=== PATIENT | female | born 1985 | race Caucasian/White ===

== ENCOUNTER 2018-01-26 18:00 | Emergency (ER) | payer MEDICAID ==
[~2018-01-26] VITALS: Ht 165.1 cm; Wt 49.0 kg
[~2018-01-26 18:00] MED LIST: ALBU8HFA PO; CODE120S2 PO; DULO-31 PO; HYDR-2561 PO; HYDR-568 PO; HYDR50CA PO; LEVO500T2 PO; MOT200T PO; NITR100C6 PO; ONDA8TAB9 PO; POLY17PO10 PO; [UNRECOGNIZED DRUG - OTHER] PO
[2018-01-26] MEDS ORDERED: nitroglycerin (18:31)
[2018-01-26] MEDS ORDERED: CLON-527 PO (18:31)
[2018-01-26 18:56] LABS: URINE HCG NEGATIVE (NEG)
[2018-01-26 19:00] LABS: CLARITY,URINE Clear (Clear); COLOR,URINE Yellow (Yellow); GLUCOSE, URINE Negative (Neg); KETONES,URINE Negative (Neg); LEUKOCYTE ESTERASE ,URINE Negative (Neg); NITRITES, URINE Negative (Neg); OCCULT BLOOD,URINE Negative (Neg); PH,URINE 7.5 (4.8-8.0); PROTEIN,URINE Negative (Neg); UROBILINOGEN,URINE 0.2 E.U/dL (0.2-1.0)
[2018-01-26 19:02] LABS: UA COLLECTION TYPE CLN CATCH MIDSTREAM
[2018-01-26 19:47] LABS: BASOPHILS % (AUTO) 0.6 % (0-1); EOSINOPHILS # (AUTO) 0.1 X10'3 (0-0.9); EOSINOPHILS % (AUTO) 2.5 % (0-6); HEMATOCRIT 31.8 % (35.0-45.0); HEMOGLOBIN 10.7 g/dl (12.0-16.0); LYMPHOCYTES # (AUTO) 1.7 X10'3 (1.1-4.8); LYMPHOCYTES % (AUTO) 30.1 % (21-51); MEAN CORPUSCULAR HEMOGLOBIN 28.5 PG (27.0-31.0); MEAN CORPUSCULAR HGB CONC 33.6 % (33.0-36.5); MEAN CORPUSCULAR VOLUME 84.7 FL (78-98); MEAN PLATELET VOLUME 6.9 FL (7.4-10.4); MONOCYTES # (AUTO) 0.6 X10'3 (0-0.9); MONOCYTES % (AUTO) 11.1 % (2-12); NEUTROPHILS # (AUTO) 3.1 X10'3 (1.8-7.7); NEUTROPHILS % (AUTO) 55.7 % (42-75); PLATELET COUNT 249 X10'3 (140-440); RED BLOOD COUNT 3.75 X10'6 (4.20-5.60); RED CELL DISTRIBUTION WIDTH 14.3 % (11.5-14.5); WHITE BLOOD COUNT 5.6 X10'3 (4.5-11.0)
[2018-01-26] MEDS ORDERED: morphine 4 MG/ML inj SYRINge IM ONE (20:00)
[2018-01-26 20:01] LABS: ALANINE AMINOTRANSFERASE 17 U/L (12-78); ALBUMIN 3.3 G/DL (3.4-5.0); ALBUMIN/GLOBULIN RATIO 0.9 (1.1-1.5); ALKALINE PHOSPHATASE 48 IU/L (46-116); ANION GAP 7 (8-16); ASPARTATE AMINO TRANSFERASE 13 U/L (10-37); BILIRUBIN,TOTAL 0.2 MG/DL (0.1-1.0); BLOOD UREA NITROGEN 9 MG/DL (7-18); BUN/CREATININE RATIO 15.8 (6.6-38.0); CALCIUM 8.9 MG/DL (8.5-10.1); CHLORIDE 105 MMOL/L (99-107); CREATININE 0.57 MG/DL (0.40-0.90); GLUCOSE 93 MG/DL (70-104); POTASSIUM 3.7 MMOL/L (3.5-5.1); SODIUM 141 MMOL/L (135-145); TOTAL CARBON DIOXIDE 28.7 MMOL/L (24-32); TOTAL PROTEIN 6.8 G/DL (6.4-8.2); eGFR > 90 ML/MIN
[2018-01-26] MEDS ORDERED: morphine 4 MG/ML inj SYRINge IV ONE (20:05)
[2018-01-27 00:06] VITALS: BP 139/86
== END 2018-01-27 00:05 | disposition home or self-care (01) ==
LOC: ER 18:01
DX: I74.3 Embolism and thrombosis of arteries of the lower extremities (principal); G43.909 Migraine, unspecified, not intractable, without status migrainosus; F12.10 Cannabis abuse, uncomplicated; F15.10 Other stimulant abuse, uncomplicated; Z56.0 Unemployment, unspecified; Z87.442 Personal history of urinary calculi; Z90.49 Acquired absence of other specified parts of digestive tract; Z88.8 Allergy status to other drugs, medicaments and biological substances; Z79.899 Other long term (current) drug therapy
CPT/HCPCS: 36415; 76856; 80053; 81003; 81025; 83605; 85025; 93922; 93925; 93978; 96374; 99285; J2270

== ENCOUNTER 2018-01-31 12:39 | Inpatient (IN) | payer MEDICAID ==
[~2018-01-31] VITALS: Ht 157.5 cm; Wt 49.5 kg
[2018-01-31] VITALS (11 sets, daily range): BP systolic 103–120; BP diastolic 51–75
[~2018-01-31 12:39] MED LIST changes: +CLON-527 PO; -CODE120S2 PO; -DULO-31 PO; -HYDR-2561 PO; -HYDR-568 PO; -HYDR50CA PO; -LEVO500T2 PO; -MOT200T PO; -NITR100C6 PO; -ONDA8TAB9 PO; -POLY17PO10 PO; -[UNRECOGNIZED DRUG - OTHER] PO; +nitroglycerin
[2018-01-31 14:39] LABS: BASOPHILS % (AUTO) 0.8 % (0-1); EOSINOPHILS # (AUTO) 0.1 X10'3 (0-0.9); EOSINOPHILS % (AUTO) 1.4 % (0-6); HEMATOCRIT 32.2 % (35.0-45.0); LYMPHOCYTES # (AUTO) 1.4 X10'3 (1.1-4.8); LYMPHOCYTES % (AUTO) 25.8 % (21-51); MEAN CORPUSCULAR HEMOGLOBIN 28.5 PG (27.0-31.0); MEAN CORPUSCULAR VOLUME 83.8 FL (78-98); MEAN PLATELET VOLUME 6.8 FL (7.4-10.4); MONOCYTES # (AUTO) 0.4 X10'3 (0-0.9); MONOCYTES % (AUTO) 8.4 % (2-12); NEUTROPHILS # (AUTO) 3.4 X10'3 (1.8-7.7); NEUTROPHILS % (AUTO) 63.6 % (42-75); PLATELET COUNT 315 X10'3 (140-440); RED BLOOD COUNT 3.85 X10'6 (4.20-5.60); RED CELL DISTRIBUTION WIDTH 14.1 % (11.5-14.5); WHITE BLOOD COUNT 5.3 X10'3 (4.5-11.0)
[2018-01-31 14:49] LABS: PARTIAL THROMBOPLASTIN TIME 24 SECONDS (22-32); PROTHROMBIN TIME 10.5 SECONDS (9.0-12.0)
[2018-01-31 14:54] LABS: ALANINE AMINOTRANSFERASE 20 U/L (12-78); ALBUMIN 3.4 G/DL (3.4-5.0); ALKALINE PHOSPHATASE 57 IU/L (46-116); ANION GAP 8 (8-16); ASPARTATE AMINO TRANSFERASE 14 U/L (10-37); BILIRUBIN,TOTAL 0.3 MG/DL (0.1-1.0); BLOOD UREA NITROGEN 8 MG/DL (7-18); BUN/CREATININE RATIO 13.8 (6.6-38.0); CALCIUM 8.7 MG/DL (8.5-10.1); CHLORIDE 107 MMOL/L (99-107); CREATININE 0.58 MG/DL (0.40-0.90); GLUCOSE 83 MG/DL (70-104); POTASSIUM 3.6 MMOL/L (3.5-5.1); SODIUM 143 MMOL/L (135-145); TOTAL CARBON DIOXIDE 28.3 MMOL/L (24-32); TOTAL PROTEIN 6.9 G/DL (6.4-8.2); eGFR > 90 ML/MIN
[2018-01-31] MEDS ORDERED: FLUC100T PO (15:16)
[2018-01-31] MEDS ORDERED: RIVA20TA PO (15:16)
[2018-01-31] MEDS ORDERED: magnesium 4gm in 100ml NS 100 ML IV PRN (15:20)
[2018-01-31] MEDS ORDERED: magnesium 2GM in 50ml NS 50 ML IV PRN (15:20)
[2018-01-31] MEDS ORDERED: bisacodyl 10mg suppository rectal RC PRN (15:20)
[2018-01-31] MEDS ORDERED: potassium Cl 40MEQ/NS 500ml 500 ML IV PRN (15:20)
[2018-01-31] MEDS ORDERED: ipratropium/albuterol 3ml nebule NEB PRN (15:20)
[2018-01-31 15:22] LABS: CLARITY,URINE CLOUDY (Clear); COLOR,URINE YELLOW (Yellow); GLUCOSE, URINE NEGATIVE (Neg); KETONES,URINE NEGATIVE (Neg); LEUKOCYTE ESTERASE ,URINE NEGATIVE (Neg); NITRITES, URINE NEGATIVE (Neg); OCCULT BLOOD,URINE NEGATIVE (Neg); PROTEIN,URINE NEGATIVE (Neg); UA COLLECTION TYPE CLN CATCH MIDSTREAM; UROBILINOGEN,URINE 0.2 E.U/dL (0.2-1.0)
[2018-01-31 15:28] LABS: SQUAMOUS EPITHELIAL CELL,UR FEW /LPF (FEW)
[2018-01-31 15:29] LABS: AMORPHOUS PHOSPHATES 1+; BACTERIA,URINE FEW /HPF (Neg)
[2018-01-31 15:30] LABS: RBC,URINE 0-2 /HPF (0-2); WBC,URINE 0-4 /HPF (0-4)
[2018-01-31 15:50] LABS: HCG SERUM QL NEGATIVE
[2018-01-31] MEDS: normal saline 1000ml 1,000 ML IV SCH ×2 (16:21→22:18)
[2018-01-31] MEDS ORDERED: ringers solution, lacted 1,000 ML IV SCH (16:33)
[2018-01-31] MEDS ORDERED: ondansetron/PF 4mg/2ml inj IV PRN (16:35)
[2018-01-31] MEDS ORDERED: morphine 4 MG/ML inj SYRINge IV PRN (16:35)
[2018-01-31] MEDS ORDERED: meperidine/PF 25mg/ml syringe IV PRN ×2 (16:35)
[2018-01-31 17:38] LABS: URINE AMPHETAMINE SCREEN NEGATIVE (Neg); URINE BARBITUATE SCREEN NEGATIVE (Neg); URINE BENZODIAZEPINES SCREEN NEGATIVE (Neg); URINE CANNABINOID SCREEN POSITIVE (Neg); URINE COCAINE SCREEN NEGATIVE (Neg); URINE METHADONE SCREEN NEGATIVE (Neg); URINE OPIATE SCREEN POSITIVE (Neg); URINE PHENCYCLIDINE SCREEN NEGATIVE (Neg)
[2018-01-31] MEDS ORDERED: ceFAZolin 1000mg inj ONE ×4 (17:42→19:49)
[2018-01-31] MEDS ORDERED: heparin 10,000 units/1 ML INJ ONE (17:42)
[2018-01-31] MEDS ORDERED: LIDOcaine 1% (10mg/ml) 2ml vial ONE (17:42)
[2018-01-31] MEDS ORDERED: desflurane 240ml liquid inh. IH ONE (18:04)
[2018-01-31] MEDS ORDERED: fentaNYL/PF 50MCG/1 ML 2ML syringe ONE (18:18)
[2018-01-31] MEDS ORDERED: midazolam 2 mg/2 ml injection ONE (18:19)
[2018-01-31] MEDS ORDERED: LIDOcaine 2% 5ml jelly ONE (18:20)
[2018-01-31] MEDS ORDERED: LIDOcaine 2% (20mg/ml) 5ml vial ONE (19:07)
[2018-01-31] MEDS ORDERED: propofol inj 20 ML IV ONE (19:07)
[2018-01-31] MEDS ORDERED: rocuronium 10mg/ml inj IV ONE (19:07)
[2018-01-31] MEDS ORDERED: heparin 1,000unit/ml 10ml vial 10 ML ONE (19:07)
[2018-01-31] MEDS ORDERED: bacitracin 15gm ointment TP ONE (20:02)
[2018-01-31] MEDS ORDERED: morphine 10mg/ml inj. ONE (20:08)
[2018-01-31] MEDS: meperidine/PF 25mg/ml syringe IV PRN ×2 (20:28→22:29)
[2018-01-31] MEDS: morphine 4 MG/ML inj SYRINge IV PRN ×2 (20:46→22:29)
[2018-01-31] MEDS: HYDROcodone/acetaminophen 10/325mg tab PO PRN (21:15)
[2018-02-01] VITALS (13 sets, daily range): BP systolic 83–106; BP diastolic 43–63
[2018-02-01] MEDS: MORPHINE 2MG in 2ml NS syringe IV PRN ×3 (00:31→20:35)
[2018-02-01] MEDS: HYDROcodone/acetaminophen 10/325mg tab PO PRN ×3 (03:25→17:24)
[2018-02-01 05:57] LABS: BASOPHILS % (AUTO) 0.3 % (0-1); EOSINOPHILS # (AUTO) 0.1 X10'3 (0-0.9); EOSINOPHILS % (AUTO) 0.9 % (0-6); HEMATOCRIT 23.1 % (35.0-45.0); HEMOGLOBIN 7.9 g/dl (12.0-16.0); LYMPHOCYTES # (AUTO) 1.3 X10'3 (1.1-4.8); LYMPHOCYTES % (AUTO) 19.5 % (21-51); MEAN CORPUSCULAR HEMOGLOBIN 29.1 PG (27.0-31.0); MEAN CORPUSCULAR VOLUME 85.7 FL (78-98); MEAN PLATELET VOLUME 6.8 FL (7.4-10.4); MONOCYTES # (AUTO) 0.5 X10'3 (0-0.9); MONOCYTES % (AUTO) 8.2 % (2-12); NEUTROPHILS # (AUTO) 4.8 X10'3 (1.8-7.7); NEUTROPHILS % (AUTO) 71.1 % (42-75); PLATELET COUNT 263 X10'3 (140-440); WHITE BLOOD COUNT 6.7 X10'3 (4.5-11.0)
[2018-02-01 06:12] LABS: ALANINE AMINOTRANSFERASE 13 U/L (12-78); ALBUMIN 2.4 G/DL (3.4-5.0); ALKALINE PHOSPHATASE 41 IU/L (46-116); ANION GAP 8 (8-16); ASPARTATE AMINO TRANSFERASE 11 U/L (10-37); BILIRUBIN,TOTAL 0.5 MG/DL (0.1-1.0); BLOOD UREA NITROGEN 7 MG/DL (7-18); BUN/CREATININE RATIO 11.3 (6.6-38.0); CALCIUM 7.5 MG/DL (8.5-10.1); CHLORIDE 107 MMOL/L (99-107); CREATININE 0.62 MG/DL (0.40-0.90); GLUCOSE 122 MG/DL (70-104); MAGNESIUM 1.7 MG/DL (1.5-2.4); POTASSIUM 3.3 MMOL/L (3.5-5.1); SODIUM 140 MMOL/L (135-145); TOTAL CARBON DIOXIDE 24.7 MMOL/L (24-32); TOTAL PROTEIN 4.9 G/DL (6.4-8.2); eGFR > 90 ML/MIN
[2018-02-01] MEDS: K and/or MAG REPLACEMENT MC SCH (08:23)
[2018-02-01] MEDS: potassium Cl 40MEQ/NS 500ml 500 ML IV PRN (09:33)
[2018-02-01] MEDS: normal saline 1000ml 1,000 ML IV SCH ×2 (09:34→21:19)
[2018-02-01] MEDS: fludrocortisone acetate 0.1mg tablet PO SCH ×2 (12:52→20:35)
[2018-02-01] MEDS: ondansetron/PF 4mg/2ml inj IV PRN (13:01)
[2018-02-01 14:42] LABS: BASOPHILS % (AUTO) 0.5 % (0-1); EOSINOPHILS # (AUTO) 0.1 X10'3 (0-0.9); EOSINOPHILS % (AUTO) 1.5 % (0-6); HEMATOCRIT 23.8 % (35.0-45.0); HEMOGLOBIN 7.9 g/dl (12.0-16.0); LYMPHOCYTES # (AUTO) 1.6 X10'3 (1.1-4.8); LYMPHOCYTES % (AUTO) 27.5 % (21-51); MEAN CORPUSCULAR HEMOGLOBIN 28.8 PG (27.0-31.0); MEAN CORPUSCULAR HGB CONC 33.3 % (33.0-36.5); MEAN CORPUSCULAR VOLUME 86.3 FL (78-98); MONOCYTES # (AUTO) 0.7 X10'3 (0-0.9); MONOCYTES % (AUTO) 11.3 % (2-12); NEUTROPHILS # (AUTO) 3.5 X10'3 (1.8-7.7); NEUTROPHILS % (AUTO) 59.2 % (42-75); PLATELET COUNT 276 X10'3 (140-440); RED BLOOD COUNT 2.76 X10'6 (4.20-5.60); RED CELL DISTRIBUTION WIDTH 14.1 % (11.5-14.5)
[2018-02-01] MEDS ORDERED: iohexol 350 MG/ML 50ML vial IV ONE (15:23)
[2018-02-01] MEDS ORDERED: iohexol 350MG/ML 100ml bottle IV ONE (15:23)
[2018-02-01] MEDS ORDERED: iohexol 300mg/ml 100ml inj. ONE (17:40)
[2018-02-01] MEDS ORDERED: LIDOcaine 1%/PF (10mg/ml) 5ml vial ONE (17:40)
[2018-02-01] MEDS ORDERED: LIDOcaine 1%/PF (10mg/ml) 5ml vial SQ ONE (17:45)
[2018-02-01] MEDS ORDERED: heparin 1,000 UNITS/NS 500ml 500 ML ICATH ONE (17:45)
[2018-02-01] MEDS ORDERED: fentaNYL/PF 50MCG/1 ML 2ML syringe IV PRN (17:45)
[2018-02-01] MEDS ORDERED: midazolam 2 mg/2 ml injection IV PRN (17:45)
[2018-02-01] MEDS ORDERED: fentaNYL/PF 50MCG/1 ML 2ML syringe ONE ×2 (18:02→18:49)
[2018-02-01] MEDS ORDERED: midazolam 2 mg/2 ml injection ONE (18:02)
[2018-02-01] MEDS ORDERED: heparin 1,000 UNITS/NS 500ml 500 ML ONE (18:02)
[2018-02-02 00:07] VITALS: BP 102/53
[2018-02-02] MEDS: normal saline 1000ml 1,000 ML IV SCH ×2 (00:46→16:41)
[2018-02-02] MEDS: HYDROcodone/acetaminophen 10/325mg tab PO PRN ×3 (04:21→20:21)
[2018-02-02 05:17] LABS: BASOPHILS % (AUTO) 0.3 % (0-1); EOSINOPHILS # (AUTO) 0.1 X10'3 (0-0.9); EOSINOPHILS % (AUTO) 1.5 % (0-6); HEMATOCRIT 22.5 % (35.0-45.0); HEMOGLOBIN 7.6 g/dl (12.0-16.0); LYMPHOCYTES # (AUTO) 1.2 X10'3 (1.1-4.8); LYMPHOCYTES % (AUTO) 18.9 % (21-51); MEAN CORPUSCULAR HEMOGLOBIN 28.8 PG (27.0-31.0); MEAN CORPUSCULAR HGB CONC 33.7 % (33.0-36.5); MEAN CORPUSCULAR VOLUME 85.6 FL (78-98); MEAN PLATELET VOLUME 6.9 FL (7.4-10.4); MONOCYTES # (AUTO) 0.7 X10'3 (0-0.9); MONOCYTES % (AUTO) 10.3 % (2-12); NEUTROPHILS # (AUTO) 4.4 X10'3 (1.8-7.7); PLATELET COUNT 261 X10'3 (140-440); RED BLOOD COUNT 2.63 X10'6 (4.20-5.60); WHITE BLOOD COUNT 6.4 X10'3 (4.5-11.0)
[2018-02-02 05:53] LABS: ALANINE AMINOTRANSFERASE 11 U/L (12-78); ALBUMIN 2.4 G/DL (3.4-5.0); ALBUMIN/GLOBULIN RATIO 0.9 (1.1-1.5); ALKALINE PHOSPHATASE 40 IU/L (46-116); ANION GAP 7 (8-16); ASPARTATE AMINO TRANSFERASE 12 U/L (10-37); BILIRUBIN,TOTAL 0.3 MG/DL (0.1-1.0); BLOOD UREA NITROGEN 6 MG/DL (7-18); CALCIUM 7.6 MG/DL (8.5-10.1); CHLORIDE 105 MMOL/L (99-107); GLUCOSE 98 MG/DL (70-104); MAGNESIUM 1.7 MG/DL (1.5-2.4); POTASSIUM 3.2 MMOL/L (3.5-5.1); SODIUM 139 MMOL/L (135-145); TOTAL CARBON DIOXIDE 27.5 MMOL/L (24-32); TOTAL PROTEIN 5.1 G/DL (6.4-8.2); eGFR > 90 ML/MIN
[2018-02-02 07:00] VITALS: BP 84/40
[2018-02-02] MEDS: fludrocortisone acetate 0.1mg tablet PO SCH ×2 (07:20→20:17)
[2018-02-02] MEDS ORDERED: potassium Cl 20 mEq SR tablet PO PRN ×2 (07:25)
[2018-02-02] MEDS ORDERED: potassium Cl 40MEQ/NS 500ml 500 ML IV PRN ×2 (07:25)
[2018-02-02] MEDS ORDERED: magnesium 2GM in 50ml NS 50 ML IV PRN (07:25)
[2018-02-02] MEDS ORDERED: magnesium 4gm in 100ml NS 100 ML IV PRN (07:25)
[2018-02-02] MEDS: K and/or MAG REPLACEMENT MC SCH ×2 (08:00)
[2018-02-02] MEDS: potassium Cl 40MEQ/NS 500ml 500 ML IV PRN (08:47)
[2018-02-02] MEDS: ondansetron/PF 4mg/2ml inj IV PRN (08:53)
[2018-02-02] MEDS ORDERED: ferrous sulfate ER tablet 140 MG TABLET.ER PO SCH (09:55)
[2018-02-02] MEDS: MORPHINE 2MG in 2ml NS syringe IV PRN (10:43)
[2018-02-02] MEDS: methylnaltrexone br 12mg/0.6ml inj***SubQ only SQ SCH (10:43)
[2018-02-02 11:48] VITALS: BP 88/41
[2018-02-02 13:51] LABS: BASOPHILS % (AUTO) 0.5 % (0-1); EOSINOPHILS # (AUTO) 0.1 X10'3 (0-0.9); EOSINOPHILS % (AUTO) 1.5 % (0-6); HEMATOCRIT 22.3 % (35.0-45.0); HEMOGLOBIN 7.5 g/dl (12.0-16.0); LYMPHOCYTES % (AUTO) 15.6 % (21-51); MEAN CORPUSCULAR HEMOGLOBIN 28.9 PG (27.0-31.0); MEAN CORPUSCULAR HGB CONC 33.6 % (33.0-36.5); MEAN CORPUSCULAR VOLUME 85.9 FL (78-98); MEAN PLATELET VOLUME 6.6 FL (7.4-10.4); MONOCYTES # (AUTO) 0.7 X10'3 (0-0.9); MONOCYTES % (AUTO) 11.2 % (2-12); NEUTROPHILS # (AUTO) 4.7 X10'3 (1.8-7.7); NEUTROPHILS % (AUTO) 71.2 % (42-75); PLATELET COUNT 254 X10'3 (140-440); RED CELL DISTRIBUTION WIDTH 14.1 % (11.5-14.5); WHITE BLOOD COUNT 6.7 X10'3 (4.5-11.0)
[2018-02-02 20:00] VITALS: BP 90/42
[2018-02-02] MEDS: ferrous gluconate 324mg tablet PO SCH (20:17)
[2018-02-03 00:05] VITALS: BP 92/47
[2018-02-03] MEDS: HYDROcodone/acetaminophen 10/325mg tab PO PRN ×5 (01:28→19:50)
[2018-02-03] MEDS: normal saline 1000ml 1,000 ML IV SCH ×2 (01:31→12:24)
[2018-02-03 05:32] LABS: BASOPHILS % (AUTO) 0.4 % (0-1); EOSINOPHILS # (AUTO) 0.2 X10'3 (0-0.9); EOSINOPHILS % (AUTO) 2.9 % (0-6); HEMOGLOBIN 7.1 g/dl (12.0-16.0); LYMPHOCYTES # (AUTO) 1.5 X10'3 (1.1-4.8); MEAN CORPUSCULAR VOLUME 85.2 FL (78-98); MEAN PLATELET VOLUME 6.6 FL (7.4-10.4); MONOCYTES # (AUTO) 0.6 X10'3 (0-0.9); MONOCYTES % (AUTO) 10.6 % (2-12); NEUTROPHILS # (AUTO) 3.5 X10'3 (1.8-7.7); NEUTROPHILS % (AUTO) 61.1 % (42-75); PLATELET COUNT 250 X10'3 (140-440); RED BLOOD COUNT 2.46 X10'6 (4.20-5.60); RED CELL DISTRIBUTION WIDTH 14.1 % (11.5-14.5); WHITE BLOOD COUNT 5.8 X10'3 (4.5-11.0)
[2018-02-03 06:08] LABS: ALANINE AMINOTRANSFERASE 15 U/L (12-78); ALBUMIN/GLOBULIN RATIO 0.7 (1.1-1.5); ALKALINE PHOSPHATASE 33 IU/L (46-116); ANION GAP 4 (8-16); ASPARTATE AMINO TRANSFERASE 11 U/L (10-37); BILIRUBIN,TOTAL 0.2 MG/DL (0.1-1.0); BLOOD UREA NITROGEN 7 MG/DL (7-18); BUN/CREATININE RATIO 13.5 (6.6-38.0); CALCIUM 7.4 MG/DL (8.5-10.1); CHLORIDE 110 MMOL/L (99-107); CREATININE 0.52 MG/DL (0.40-0.90); GLUCOSE 92 MG/DL (70-104); MAGNESIUM 1.8 MG/DL (1.5-2.4); POTASSIUM 3.8 MMOL/L (3.5-5.1); SODIUM 144 MMOL/L (135-145); TOTAL CARBON DIOXIDE 30.1 MMOL/L (24-32); TOTAL PROTEIN 4.7 G/DL (6.4-8.2); eGFR > 90 ML/MIN
[2018-02-03 07:35] VITALS: BP 89/52
[2018-02-03] MEDS: K and/or MAG REPLACEMENT MC SCH (08:00)
[2018-02-03] MEDS: ferrous gluconate 324mg tablet PO SCH ×2 (08:46→20:39)
[2018-02-03] MEDS: fludrocortisone acetate 0.1mg tablet PO SCH ×2 (08:47→20:39)
[2018-02-03] MEDS: ondansetron/PF 4mg/2ml inj IV PRN (08:51)
[2018-02-03 11:32] VITALS: BP 90/51
[2018-02-03 19:20] VITALS: BP 101/57
[2018-02-03] MEDS: magnesium hydroxide 30ml (MOM) UD suspension PO SCH (20:39)
[2018-02-03 23:30] VITALS: BP 95/54
[2018-02-04] MEDS: HYDROcodone/acetaminophen 10/325mg tab PO PRN ×5 (00:47→21:37)
[2018-02-04] MEDS ORDERED: SUMA20SP (06:07)
[2018-02-04] MEDS ORDERED: CLON0.5T4 (06:07)
[2018-02-04 06:13] LABS: BASOPHILS % (AUTO) 0.8 % (0-1); EOSINOPHILS # (AUTO) 0.2 X10'3 (0-0.9); EOSINOPHILS % (AUTO) 3.4 % (0-6); LYMPHOCYTES # (AUTO) 1.4 X10'3 (1.1-4.8); LYMPHOCYTES % (AUTO) 29.6 % (21-51); MEAN CORPUSCULAR HEMOGLOBIN 28.8 PG (27.0-31.0); MEAN CORPUSCULAR VOLUME 87.3 FL (78-98); MEAN PLATELET VOLUME 6.7 FL (7.4-10.4); MONOCYTES # (AUTO) 0.5 X10'3 (0-0.9); MONOCYTES % (AUTO) 9.9 % (2-12); NEUTROPHILS # (AUTO) 2.6 X10'3 (1.8-7.7); NEUTROPHILS % (AUTO) 56.3 % (42-75); PLATELET COUNT 270 X10'3 (140-440); RED BLOOD COUNT 2.42 X10'6 (4.20-5.60); RED CELL DISTRIBUTION WIDTH 14.6 % (11.5-14.5); WHITE BLOOD COUNT 4.6 X10'3 (4.5-11.0)
[2018-02-04 06:17] LABS: HEMATOCRIT 21.1 % (35.0-45.0)
[2018-02-04 06:32] LABS: ALANINE AMINOTRANSFERASE 12 U/L (12-78); ALBUMIN 2.1 G/DL (3.4-5.0); ALBUMIN/GLOBULIN RATIO 0.7 (1.1-1.5); ALKALINE PHOSPHATASE 38 IU/L (46-116); ANION GAP 6 (8-16); ASPARTATE AMINO TRANSFERASE 15 U/L (10-37); BILIRUBIN,TOTAL 0.3 MG/DL (0.1-1.0); BLOOD UREA NITROGEN 6 MG/DL (7-18); BUN/CREATININE RATIO 10.7 (6.6-38.0); CALCIUM 7.8 MG/DL (8.5-10.1); CHLORIDE 108 MMOL/L (99-107); CREATININE 0.56 MG/DL (0.40-0.90); GLUCOSE 95 MG/DL (70-104); PHOSPHORUS 3.1 MG/DL (2.3-4.5); POTASSIUM 3.3 MMOL/L (3.5-5.1); SODIUM 144 MMOL/L (135-145); TOTAL CARBON DIOXIDE 29.6 MMOL/L (24-32); eGFR > 90 ML/MIN
[2018-02-04 07:00] VITALS: BP 80/46
[2018-02-04] MEDS ORDERED: potassium Cl 20 mEq SR tablet PO ONE (07:26)
[2018-02-04] MEDS: K and/or MAG REPLACEMENT MC SCH (08:00)
[2018-02-04] MEDS: magnesium hydroxide 30ml (MOM) UD suspension PO SCH ×2 (08:02→20:05)
[2018-02-04] MEDS: ferrous gluconate 324mg tablet PO SCH ×2 (08:03→20:05)
[2018-02-04] MEDS: methylnaltrexone br 12mg/0.6ml inj***SubQ only SQ SCH (08:03)
[2018-02-04] MEDS: fludrocortisone acetate 0.1mg tablet PO SCH ×2 (08:03→20:05)
[2018-02-04] MEDS: normal saline 1000ml 1,000 ML IV SCH (08:05)
[2018-02-04 11:00] VITALS: BP 92/52
[2018-02-04 12:51] VITALS: BP 92/58
[2018-02-04] MEDS: ondansetron/PF 4mg/2ml inj IV PRN (19:07)
[2018-02-04 19:30] VITALS: BP 94/51
[2018-02-04 23:30] VITALS: BP 98/58
[2018-02-05] MEDS: normal saline 1000ml 1,000 ML IV SCH (05:08)
[2018-02-05] MEDS: HYDROcodone/acetaminophen 10/325mg tab PO PRN ×4 (05:14→20:20)
[2018-02-05 05:19] LABS: BASOPHILS % (AUTO) 0.6 % (0-1); EOSINOPHILS # (AUTO) 0.2 X10'3 (0-0.9); EOSINOPHILS % (AUTO) 3.2 % (0-6); LYMPHOCYTES # (AUTO) 1.5 X10'3 (1.1-4.8); LYMPHOCYTES % (AUTO) 30.3 % (21-51); MEAN CORPUSCULAR HEMOGLOBIN 28.7 PG (27.0-31.0); MEAN CORPUSCULAR HGB CONC 33.2 % (33.0-36.5); MEAN CORPUSCULAR VOLUME 86.4 FL (78-98); MONOCYTES # (AUTO) 0.5 X10'3 (0-0.9); MONOCYTES % (AUTO) 9.8 % (2-12); NEUTROPHILS # (AUTO) 2.7 X10'3 (1.8-7.7); NEUTROPHILS % (AUTO) 56.1 % (42-75); PLATELET COUNT 306 X10'3 (140-440); RED BLOOD COUNT 2.43 X10'6 (4.20-5.60); RED CELL DISTRIBUTION WIDTH 14.8 % (11.5-14.5); WHITE BLOOD COUNT 4.8 X10'3 (4.5-11.0)
[2018-02-05 05:57] LABS: ALANINE AMINOTRANSFERASE 18 U/L (12-78); ALBUMIN 2.1 G/DL (3.4-5.0); ALBUMIN/GLOBULIN RATIO 0.7 (1.1-1.5); ALKALINE PHOSPHATASE 41 IU/L (46-116); ANION GAP 5 (8-16); ASPARTATE AMINO TRANSFERASE 12 U/L (10-37); BILIRUBIN,TOTAL 0.3 MG/DL (0.1-1.0); BLOOD UREA NITROGEN 7 MG/DL (7-18); BUN/CREATININE RATIO 12.7 (6.6-38.0); CALCIUM 7.6 MG/DL (8.5-10.1); CHLORIDE 108 MMOL/L (99-107); CREATININE 0.55 MG/DL (0.40-0.90); GLUCOSE 92 MG/DL (70-104); MAGNESIUM 2.2 MG/DL (1.5-2.4); POTASSIUM 3.9 MMOL/L (3.5-5.1); SODIUM 143 MMOL/L (135-145); TOTAL CARBON DIOXIDE 29.9 MMOL/L (24-32); TOTAL PROTEIN 5.1 G/DL (6.4-8.2); eGFR > 90 ML/MIN
[2018-02-05 07:05] VITALS: BP 90/44
[2018-02-05] MEDS: fludrocortisone acetate 0.1mg tablet PO SCH ×2 (07:26→20:15)
[2018-02-05] MEDS: magnesium hydroxide 30ml (MOM) UD suspension PO SCH ×2 (07:26→20:15)
[2018-02-05] MEDS: ferrous gluconate 324mg tablet PO SCH ×2 (10:18→20:16)
[2018-02-05 10:53] VITALS: BP 108/59
[2018-02-05 18:00] VITALS: BP 109/73
[2018-02-06] VITALS: BP 95/57
[2018-02-06] MEDS: normal saline 1000ml 1,000 ML IV SCH ×2 (00:01→17:48)
[2018-02-06 05:29] LABS: BASOPHILS % (AUTO) 0.6 % (0-1); EOSINOPHILS # (AUTO) 0.1 X10'3 (0-0.9); HEMOGLOBIN 7.2 g/dl (12.0-16.0); LYMPHOCYTES # (AUTO) 1.4 X10'3 (1.1-4.8); MEAN CORPUSCULAR HEMOGLOBIN 28.5 PG (27.0-31.0); MEAN CORPUSCULAR HGB CONC 33.1 % (33.0-36.5); MEAN CORPUSCULAR VOLUME 86.1 FL (78-98); MEAN PLATELET VOLUME 6.6 FL (7.4-10.4); MONOCYTES # (AUTO) 0.5 X10'3 (0-0.9); MONOCYTES % (AUTO) 10.8 % (2-12); NEUTROPHILS # (AUTO) 2.7 X10'3 (1.8-7.7); NEUTROPHILS % (AUTO) 56.6 % (42-75); PLATELET COUNT 332 X10'3 (140-440); RED BLOOD COUNT 2.53 X10'6 (4.20-5.60); RED CELL DISTRIBUTION WIDTH 14.5 % (11.5-14.5); WHITE BLOOD COUNT 4.7 X10'3 (4.5-11.0)
[2018-02-06 05:42] LABS: HEMATOCRIT 21.8 % (35.0-45.0)
[2018-02-06 06:11] LABS: ALBUMIN 2.1 G/DL (3.4-5.0); ANION GAP 4 (8-16); BLOOD UREA NITROGEN 6 MG/DL (7-18); BUN/CREATININE RATIO 11.8 (6.6-38.0); CHLORIDE 107 MMOL/L (99-107); CREATININE 0.51 MG/DL (0.40-0.90); GLUCOSE 88 MG/DL (70-104); MAGNESIUM 2.3 MG/DL (1.5-2.4); PHOSPHORUS 3.6 MG/DL (2.3-4.5); POTASSIUM 3.6 MMOL/L (3.5-5.1); SODIUM 142 MMOL/L (135-145); TOTAL CARBON DIOXIDE 30.8 MMOL/L (24-32); eGFR > 90 ML/MIN
[2018-02-06 07:00] VITALS: BP 93/58
[2018-02-06] MEDS: fludrocortisone acetate 0.1mg tablet PO SCH ×2 (07:46→19:25)
[2018-02-06] MEDS: HYDROcodone/acetaminophen 10/325mg tab PO PRN ×3 (07:46→17:46)
[2018-02-06] MEDS: magnesium hydroxide 30ml (MOM) UD suspension PO SCH ×2 (07:47→19:24)
[2018-02-06] MEDS: methylnaltrexone br 12mg/0.6ml inj***SubQ only SQ SCH (07:47)
[2018-02-06] MEDS: ferrous gluconate 324mg tablet PO SCH ×2 (07:47→19:25)
[2018-02-06 18:00] VITALS: BP 105/65
[2018-02-06] MEDS: ondansetron/PF 4mg/2ml inj IV PRN (18:46)
[2018-02-07] VITALS: BP 100/65
[2018-02-07] MEDS: HYDROcodone/acetaminophen 10/325mg tab PO PRN (00:11)
[2018-02-07] MEDS: magnesium hydroxide 30ml (MOM) UD suspension PO SCH (07:12)
[2018-02-07] MEDS: fludrocortisone acetate 0.1mg tablet PO SCH (07:12)
[2018-02-07] MEDS: ferrous gluconate 324mg tablet PO SCH (07:12)
[2018-02-07 08:28] VITALS: BP 105/61
[2018-02-07] MEDS ORDERED: FLO0.1T PO (08:52)
[2018-02-07] MEDS ORDERED: FERGLU300T PO (08:52)
== END 2018-02-07 10:46 | disposition home health service (06) | DRG 181 ==
LOC: ER 12:39 → ED HOLD 15:19 → MED 3N 21:10 → SUR 3N 02-04 16:52
PROVIDERS: ADMIT Family Medicine; ATTEND Family Medicine
PROC: 04UK0JZ Supplement Right Femoral Artery with Synthetic Substitute, Open Approach (ICD-10-PCS; 2018-01-31)
PROC: 04CK0ZZ Extirpation of Matter from Right Femoral Artery, Open Approach (ICD-10-PCS; principal; 2018-01-31 18:04)
PROC: B41C1ZZ Fluoroscopy of Pelvic Arteries using Low Osmolar Contrast (ICD-10-PCS; 2018-02-01)
PROC: B41F1ZZ Fluoroscopy of Right Lower Extremity Arteries using Low Osmolar Contrast (ICD-10-PCS; 2018-02-01)
PROC: B4201ZZ Computerized Tomography (CT Scan) of Abdominal Aorta using Low Osmolar Contrast (ICD-10-PCS; 2018-02-01)
PROC: B42F1ZZ Computerized Tomography (CT Scan) of Right Lower Extremity Arteries using Low Osmolar Contrast (ICD-10-PCS; 2018-02-01)
DX: I70.201 Unspecified atherosclerosis of native arteries of extremities, right leg (principal); I77.77 Dissection of artery of lower extremity; K66.1 Hemoperitoneum; I74.3 Embolism and thrombosis of arteries of the lower extremities; I95.89 Other hypotension; F32.9 Major depressive disorder, single episode, unspecified; D64.9 Anemia, unspecified; F41.9 Anxiety disorder, unspecified; G43.909 Migraine, unspecified, not intractable, without status migrainosus; R14.0 Abdominal distension (gaseous); Z87.442 Personal history of urinary calculi; Z88.8 Allergy status to other drugs, medicaments and biological substances; Z90.49 Acquired absence of other specified parts of digestive tract; Z98.51 Tubal ligation status; Z79.899 Other long term (current) drug therapy
CPT/HCPCS: 36245; 36415; 75635; 75710; 76937; 80048; 80053; 80305; 81001; 83735; 84100; 84703; 85025; 85610; 85730; 86885; 86900; 86901; 86920; 87070; 93005; 94760; 97116; 97162; 97530; 99152; 99153; 99285; A4315; A4620; A6219; A6255; A6258; A6402; A6449; A7000; C1768; C1769; C1894; G0269; J0690; J1644; J2001; J2175; J2250; J2270; J2274; J2405; J2704; J3010; J3480; J3490; J7030; J7120; Q9967

== ENCOUNTER 2018-03-17 21:29 | Emergency (ER) | payer MEDICAID ==
[~2018-03-17] VITALS: Ht 157.5 cm; Wt 51.2 kg
[~2018-03-17 21:29] MED LIST changes: -ALBU8HFA PO; -CLON-527 PO; +CLON0.5T12; +FERGLU300T PO; +FLO0.1T PO; +SUMA20SP; -nitroglycerin
[2018-03-17] MEDS ORDERED: normal saline 1000ML IV soln IVB ONE (22:05)
[2018-03-17 22:57] LABS: URINE HCG NEGATIVE (NEG)
[2018-03-17 22:58] LABS: BASOPHILS # (AUTO) 0.1 X10'3 (0-0.2); BASOPHILS % (AUTO) 1.4 % (0-1); EOSINOPHILS # (AUTO) 0.1 X10'3 (0-0.9); EOSINOPHILS % (AUTO) 1.2 % (0-6); HEMATOCRIT 30.4 % (35.0-45.0); HEMOGLOBIN 9.9 g/dl (12.0-16.0); LYMPHOCYTES # (AUTO) 1.7 X10'3 (1.1-4.8); LYMPHOCYTES % (AUTO) 34.7 % (21-51); MEAN CORPUSCULAR HGB CONC 32.7 % (33.0-36.5); MEAN CORPUSCULAR VOLUME 79.5 FL (78-98); MEAN PLATELET VOLUME 7.7 FL (7.4-10.4); MONOCYTES # (AUTO) 0.5 X10'3 (0-0.9); MONOCYTES % (AUTO) 9.5 % (2-12); NEUTROPHILS # (AUTO) 2.6 X10'3 (1.8-7.7); NEUTROPHILS % (AUTO) 53.2 % (42-75); PLATELET COUNT 193 X10'3 (140-440); RED BLOOD COUNT 3.82 X10'6 (4.20-5.60); RED CELL DISTRIBUTION WIDTH 14.6 % (11.5-14.5)
[2018-03-17 23:06] LABS: CLARITY,URINE CLEAR (Clear); COLOR,URINE STRAW (Yellow); GLUCOSE, URINE NEGATIVE (Neg); KETONES,URINE NEGATIVE (Neg); LEUKOCYTE ESTERASE ,URINE NEGATIVE (Neg); NITRITES, URINE NEGATIVE (Neg); OCCULT BLOOD,URINE NEGATIVE (Neg); PH,URINE 5.5 (4.8-8.0); PROTEIN,URINE NEGATIVE (Neg); UROBILINOGEN,URINE 0.2 E.U/dL (0.2-1.0)
[2018-03-17] MEDS ORDERED: normal saline 1000ml 1,000 ML IV ONE (23:15)
[2018-03-17 23:17] LABS: UA COLLECTION TYPE CLN CATCH MIDSTREAM
[2018-03-17 23:18] LABS: ALANINE AMINOTRANSFERASE 17 U/L (12-78); ALBUMIN 3.5 G/DL (3.4-5.0); ALKALINE PHOSPHATASE 65 IU/L (46-116); ANION GAP 12 (8-16); ASPARTATE AMINO TRANSFERASE 18 U/L (10-37); BILIRUBIN,TOTAL 0.2 MG/DL (0.1-1.0); BLOOD UREA NITROGEN 4 MG/DL (7-18); BUN/CREATININE RATIO 7.3 (6.6-38.0); CALCIUM 8.2 MG/DL (8.5-10.1); CHLORIDE 107 MMOL/L (99-107); CREATININE 0.55 MG/DL (0.40-0.90); GLUCOSE 79 MG/DL (70-104); SODIUM 143 MMOL/L (135-145); TOTAL CARBON DIOXIDE 24.2 MMOL/L (24-32); TOTAL PROTEIN 7.1 G/DL (6.4-8.2); eGFR > 90 ML/MIN
[2018-03-17] MEDS ORDERED: potassium Cl 20 mEq SR tablet PO STA (23:33)
[2018-03-17] MEDS ORDERED: potassium 10mEq/100ml NS w/LIDOcaine (10mg/bag) IV ONE (23:35)
[2018-03-17] MEDS: magnesium/D5W IVPB 100 ML IV SCH (23:35)
[2018-03-17] MEDS ORDERED: ondansetron/PF 4mg/2ml inj IV ONE (23:35)
[2018-03-18] MEDS ORDERED: iohexol 350 MG/ML 50ML vial IV ONE (00:08)
[2018-03-18] MEDS ORDERED: iohexol 350MG/ML 100ml bottle IV ONE (00:08)
[2018-03-18 00:14] LABS: MAGNESIUM 2.1 MG/DL (1.5-2.4)
[2018-03-18] MEDS: magnesium/D5W IVPB 100 ML IV SCH (00:35)
[2018-03-18] MEDS ORDERED: acetaminophen 325mg tablet PO ONE (01:10)
[2018-03-18 03:19] VITALS: BP 119/81
== END 2018-03-18 03:24 | disposition home or self-care (01) ==
LOC: ER 21:29
DX: R07.89 Other chest pain (principal); G89.18 Other acute postprocedural pain; G43.909 Migraine, unspecified, not intractable, without status migrainosus; F12.90 Cannabis use, unspecified, uncomplicated; F15.90 Other stimulant use, unspecified, uncomplicated; Z90.49 Acquired absence of other specified parts of digestive tract; Z98.51 Tubal ligation status; Z56.0 Unemployment, unspecified; Z88.8 Allergy status to other drugs, medicaments and biological substances; Z79.899 Other long term (current) drug therapy
CPT/HCPCS: 36415; 71045; 73706; 74174; 76856; 80053; 81003; 81025; 83605; 83735; 84484; 85025; 93005; 96365; 96366; 96368; 99285; A6449; J3480; J7030; Q9967

== ENCOUNTER 2019-05-08 22:36 | Emergency (ER) | payer MEDICAID ==
[~2019-05-08] VITALS: Ht 157.5 cm; Wt 54.5 kg
[2019-05-08 22:40] VITALS: BP 106/79
[2019-05-08] MEDS ORDERED: ondansetron 4mg rapidly disintigrating tab PO ONE (23:45)
[2019-05-08 23:50] LABS: CLARITY,URINE CLEAR (Clear); COLOR,URINE YELLOW (Yellow); GLUCOSE, URINE NEGATIVE (Neg); KETONES,URINE NEGATIVE (Neg); LEUKOCYTE ESTERASE ,URINE NEGATIVE (Neg); NITRITES, URINE NEGATIVE (Neg); OCCULT BLOOD,URINE NEGATIVE (Neg); PROTEIN,URINE NEGATIVE (Neg); UROBILINOGEN,URINE 0.2 E.U/dL (0.2-1.0)
[2019-05-08 23:54] LABS: URINE HCG NEGATIVE (NEG)
[2019-05-08 23:55] LABS: UA COLLECTION TYPE CLN CATCH MIDSTREAM
[2019-05-09 00:13] LABS: BASOPHILS # (AUTO) 0.1 X10'3 (0-0.2); BASOPHILS % (AUTO) 0.7 % (0-1); EOSINOPHILS # (AUTO) 0.1 X10'3 (0-0.9); EOSINOPHILS % (AUTO) 0.8 % (0-6); HEMATOCRIT 36.7 % (35.0-45.0); HEMOGLOBIN 12.6 g/dl (12.0-16.0); LYMPHOCYTES # (AUTO) 2.3 X10'3 (1.1-4.8); LYMPHOCYTES % (AUTO) 30.9 % (21-51); MEAN CORPUSCULAR HEMOGLOBIN 29.8 PG (27.0-31.0); MEAN CORPUSCULAR HGB CONC 34.4 g/dL (33.0-36.5); MEAN CORPUSCULAR VOLUME 86.5 FL (78-98); MEAN PLATELET VOLUME 7.9 FL (7.4-10.4); MONOCYTES # (AUTO) 0.7 X10'3 (0-0.9); MONOCYTES % (AUTO) 9.8 % (2-12); NEUTROPHILS # (AUTO) 4.4 X10'3 (1.8-7.7); NEUTROPHILS % (AUTO) 57.8 % (42-75); PLATELET COUNT 238 X10'3 (140-440); RED BLOOD COUNT 4.24 X10'6 (4.20-5.60); WHITE BLOOD COUNT 7.6 X10'3 (4.5-11.0)
[2019-05-09 00:25] LABS: ALANINE AMINOTRANSFERASE 20 U/L (12-78); ALBUMIN 3.8 G/DL (3.4-5.0); ALBUMIN/GLOBULIN RATIO 1.1 (1.1-1.5); ALKALINE PHOSPHATASE 73 IU/L (46-116); ANION GAP 9 (8-16); ASPARTATE AMINO TRANSFERASE 15 U/L (10-37); BILIRUBIN,TOTAL 0.3 MG/DL (0.1-1.0); BLOOD UREA NITROGEN 5 MG/DL (7-18); BUN/CREATININE RATIO 7.1 (6.6-38.0); CALCIUM 8.5 MG/DL (8.5-10.1); CHLORIDE 107 MMOL/L (99-107); GLUCOSE 97 MG/DL (70-104); POTASSIUM 3.8 MMOL/L (3.5-5.1); SODIUM 141 MMOL/L (135-145); TOTAL CARBON DIOXIDE 24.8 MMOL/L (24-32); TOTAL PROTEIN 7.3 G/DL (6.4-8.2); eGFR > 90 ML/MIN
[2019-05-09] MEDS ORDERED: ONDA4TAB6 PO (00:45)
== END 2019-05-09 00:53 | disposition home or self-care (01) ==
LOC: ER 22:37
DX: R11.2 Nausea with vomiting, unspecified (principal); F41.9 Anxiety disorder, unspecified; F32.9 Major depressive disorder, single episode, unspecified; F12.90 Cannabis use, unspecified, uncomplicated; F15.90 Other stimulant use, unspecified, uncomplicated; Z86.69 Personal history of other diseases of the nervous system and sense organs; Z86.718 Personal history of other venous thrombosis and embolism; Z90.49 Acquired absence of other specified parts of digestive tract; Z98.51 Tubal ligation status; Z98.890 Other specified postprocedural states; Z88.8 Allergy status to other drugs, medicaments and biological substances; Z79.899 Other long term (current) drug therapy
CPT/HCPCS: 36415; 80053; 81003; 81025; 85025; 93005; 99284; J2405

== ENCOUNTER 2019-10-02 12:41 | Emergency (ER) | payer MEDICAID, OTHER ==
[~2019-10-02] VITALS: Ht 157.5 cm; Wt 57.0 kg
[~2019-10-02 12:41] MED LIST changes: -CLON0.5T12; +CLON0.5T4; +ONDA4TAB6 PO
[2019-10-02 13:43] LABS: URINE HCG NEGATIVE (NEG)
[2019-10-02 13:52] LABS: CLARITY,URINE CLEAR (Clear); COLOR,URINE YELLOW (Yellow); GLUCOSE, URINE NEGATIVE (Neg); KETONES,URINE NEGATIVE (Neg); LEUKOCYTE ESTERASE ,URINE TRACE (Neg); NITRITES, URINE NEGATIVE (Neg); OCCULT BLOOD,URINE NEGATIVE (Neg); PROTEIN,URINE NEGATIVE (Neg); UROBILINOGEN,URINE 0.2 E.U/dL (0.2-1.0)
[2019-10-02 13:53] LABS: UA COLLECTION TYPE CLN CATCH MIDSTREAM
[2019-10-02 14:02] LABS: BASOPHILS # (AUTO) 0.1 X10'3 (0-0.2); BASOPHILS % (AUTO) 0.9 % (0-1); EOSINOPHILS # (AUTO) 0.1 X10'3 (0-0.9); EOSINOPHILS % (AUTO) 0.8 % (0-6); HEMATOCRIT 38.7 % (35.0-45.0); HEMOGLOBIN 13.5 g/dl (12.0-16.0); LYMPHOCYTES % (AUTO) 28.2 % (21-51); MEAN CORPUSCULAR HEMOGLOBIN 30.6 PG (27.0-31.0); MEAN CORPUSCULAR HGB CONC 34.7 g/dL (33.0-36.5); MEAN CORPUSCULAR VOLUME 88.2 FL (78-98); MEAN PLATELET VOLUME 7.2 FL (7.4-10.4); MONOCYTES # (AUTO) 0.7 X10'3 (0-0.9); MONOCYTES % (AUTO) 9.5 % (2-12); NEUTROPHILS # (AUTO) 4.3 X10'3 (1.8-7.7); NEUTROPHILS % (AUTO) 60.6 % (42-75); PLATELET COUNT 287 X10'3 (140-440); RED BLOOD COUNT 4.39 X10'6 (4.20-5.60); RED CELL DISTRIBUTION WIDTH 12.9 % (11.5-14.5)
[2019-10-02 14:03] LABS: BACTERIA,URINE FEW /HPF (Neg); RBC,URINE 0-2 /HPF (0-2); SQUAMOUS EPITHELIAL CELL,UR FEW /LPF (FEW); TRICHOMONAS,URINE MOD /HPF (NEGATIVE); WBC,URINE 0-4 /HPF (0-4)
[2019-10-02] MEDS ORDERED: ondansetron 4mg rapidly disintigrating tab PO ONE (14:10)
[2019-10-02 14:14] LABS: ALANINE AMINOTRANSFERASE 23 U/L (12-78); ALBUMIN 4.1 G/DL (3.4-5.0); ALBUMIN/GLOBULIN RATIO 1.1 (1.1-1.5); ALKALINE PHOSPHATASE 77 IU/L (46-116); AMYLASE 44 U/L (25-115); ASPARTATE AMINO TRANSFERASE 15 U/L (10-37); BILIRUBIN,TOTAL 0.3 MG/DL (0.1-1.0); BLOOD UREA NITROGEN 7 MG/DL (7-18); BUN/CREATININE RATIO 10.8 (6.6-38.0); CALCIUM 8.5 MG/DL (8.5-10.1); CREATININE 0.65 MG/DL (0.40-0.90); GLUCOSE 103 MG/DL (70-104); LIPASE 141 U/L (73-393); POTASSIUM 3.8 MMOL/L (3.5-5.1); SODIUM 141 MMOL/L (135-145); TOTAL CARBON DIOXIDE 27.6 MMOL/L (24-32); TOTAL PROTEIN 7.7 G/DL (6.4-8.2); eGFR > 90 ML/MIN
[2019-10-02 14:16] LABS: ANION GAP 8 (8-16); CHLORIDE 105 MMOL/L (99-107)
[2019-10-02] MEDS ORDERED: ONDA4TAB12 PO (14:36)
[2019-10-02 15:14] VITALS: BP 96/62
== END 2019-10-02 15:16 | disposition home or self-care (01) ==
LOC: ER 12:42
DX: J40 Bronchitis, not specified as acute or chronic (principal); R11.2 Nausea with vomiting, unspecified; G43.909 Migraine, unspecified, not intractable, without status migrainosus; F12.90 Cannabis use, unspecified, uncomplicated; F15.90 Other stimulant use, unspecified, uncomplicated; F17.210 Nicotine dependence, cigarettes, uncomplicated; Z56.0 Unemployment, unspecified; Z90.49 Acquired absence of other specified parts of digestive tract; Z98.51 Tubal ligation status; Z86.718 Personal history of other venous thrombosis and embolism; Z88.3 Allergy status to other anti-infective agents; Z88.8 Allergy status to other drugs, medicaments and biological substances
CPT/HCPCS: 36415; 71045; 80053; 81001; 81025; 82150; 83690; 85025; 87088; 99284

== ENCOUNTER 2020-05-06 17:12 | Emergency (ER) | payer MEDICAID ==
[~2020-05-06] VITALS: Ht 157.5 cm; Wt 62.7 kg
[~2020-05-06 17:12] MED LIST changes: +ONDA4TAB12 PO
[2020-05-06] MEDS ORDERED: ketorolac trometh. 30mg/ml inj. IV ONE (17:50)
[2020-05-06] MEDS ORDERED: normal saline 1000ML IV soln IVB ONE (17:50)
[2020-05-06] MEDS ORDERED: NO HOME MEDS (17:57)
[2020-05-06] MEDS ORDERED: ondansetron/PF 4mg/2ml inj IV ONE (18:05)
[2020-05-06 18:15] LABS: BASOPHILS # (AUTO) 0.1 X10'3 (0-0.2); EOSINOPHILS # (AUTO) 0.1 X10'3 (0-0.9); EOSINOPHILS % (AUTO) 1.3 % (0-6); HEMATOCRIT 38.9 % (35.0-45.0); HEMOGLOBIN 13.4 g/dl (12.0-16.0); LYMPHOCYTES # (AUTO) 2.1 X10'3 (1.1-4.8); LYMPHOCYTES % (AUTO) 32.7 % (21-51); MEAN CORPUSCULAR HGB CONC 34.6 g/dL (33.0-36.5); MEAN CORPUSCULAR VOLUME 89.6 FL (78-98); MEAN PLATELET VOLUME 8.4 FL (7.4-10.4); MONOCYTES # (AUTO) 0.7 X10'3 (0-0.9); MONOCYTES % (AUTO) 10.5 % (2-12); NEUTROPHILS # (AUTO) 3.5 X10'3 (1.8-7.7); NEUTROPHILS % (AUTO) 54.5 % (42-75); PLATELET COUNT 235 X10'3 (140-440); RED BLOOD COUNT 4.34 X10'6 (4.20-5.60); RED CELL DISTRIBUTION WIDTH 13.3 % (11.5-14.5); WHITE BLOOD COUNT 6.4 X10'3 (4.5-11.0)
[2020-05-06 18:36] LABS: ALANINE AMINOTRANSFERASE 29 U/L (12-78); ALBUMIN 3.7 G/DL (3.4-5.0); ANION GAP 11 (8-16); ASPARTATE AMINO TRANSFERASE 18 U/L (10-37); BILIRUBIN,TOTAL 0.3 MG/DL (0.1-1.0); BLOOD UREA NITROGEN 5 MG/DL (7-18); BUN/CREATININE RATIO 6.8 (6.6-38.0); CALCIUM 8.7 MG/DL (8.5-10.1); CHLORIDE 105 MMOL/L (99-107); CREATININE 0.74 MG/DL (0.40-0.90); GLUCOSE 122 MG/DL (70-104); POTASSIUM 3.4 MMOL/L (3.5-5.1); SODIUM 139 MMOL/L (135-145); TOTAL CARBON DIOXIDE 22.8 MMOL/L (24-32); TOTAL PROTEIN 7.5 G/DL (6.4-8.2); eGFR 89 ML/MIN
[2020-05-06 18:39] LABS: D-DIMER 0.34 MG/L FEU (0-0.50)
[2020-05-06 19:19] VITALS: BP 102/65
[2020-05-06 20:09] LABS: ALKALINE PHOSPHATASE 74 IU/L (46-116)
== END 2020-05-06 19:20 | disposition home or self-care (01) ==
LOC: ER 17:12
DX: R09.1 Pleurisy (principal); R07.89 Other chest pain; R06.02 Shortness of breath; R41.0 Disorientation, unspecified; G43.909 Migraine, unspecified, not intractable, without status migrainosus; F41.9 Anxiety disorder, unspecified; F32.9 Major depressive disorder, single episode, unspecified; F12.90 Cannabis use, unspecified, uncomplicated; F15.90 Other stimulant use, unspecified, uncomplicated; Z86.69 Personal history of other diseases of the nervous system and sense organs; Z86.718 Personal history of other venous thrombosis and embolism; Z98.51 Tubal ligation status; Z98.890 Other specified postprocedural states; Z56.0 Unemployment, unspecified; Z88.8 Allergy status to other drugs, medicaments and biological substances; Z79.899 Other long term (current) drug therapy
CPT/HCPCS: 36415; 80053; 84484; 85025; 85379; 93005; 96361; 96374; 96375; 99284; J1885; J2405; J7030

== ENCOUNTER 2022-03-28 23:17 | Emergency (ER) | payer MEDICAID ==
[~2022-03-28] VITALS: Ht 157.5 cm; Wt 68.2 kg
[~2022-03-28 23:17] MED LIST changes: -CLON0.5T4; +DICL100G30 TOP; -FERGLU300T PO; -FLO0.1T PO; +METH-798 PO; +NO HOME MEDS; -ONDA4TAB12 PO; -ONDA4TAB6 PO; -SUMA20SP
[2022-03-28 23:34] VITALS: BP 122/65
[2022-03-29] MEDS ORDERED: ondansetron/PF 4mg/2ml inj IV ONE (00:10)
[2022-03-29] MEDS ORDERED: ketorolac tromethamine 15mg/ml inj. IV ONE (00:10)
[2022-03-29] MEDS ORDERED: normal saline 1000ML IV soln IVB ONE (00:10)
[2022-03-29] MEDS ORDERED: pantoprazole 40 MG vial IV ONE (00:10)
== END 2022-03-29 02:08 | disposition home or self-care (01) ==
LOC: ER 23:18
DX: U07.1 COVID-19 (principal); F15.10 Other stimulant abuse, uncomplicated; F12.10 Cannabis abuse, uncomplicated; G43.909 Migraine, unspecified, not intractable, without status migrainosus; F31.9 Bipolar disorder, unspecified; Z87.442 Personal history of urinary calculi; Z88.8 Allergy status to other drugs, medicaments and biological substances; Z79.899 Other long term (current) drug therapy; Z88.5 Allergy status to narcotic agent
CPT/HCPCS: 96374; 96375; 99284; C9113; J1885; J2405; J7030

== ENCOUNTER 2022-05-08 15:03 | Emergency (ER) | payer MEDICAID ==
[~2022-05-08] VITALS: Ht 157.5 cm; Wt 68.2 kg
[2022-05-08 15:06] VITALS: BP 128/77
[2022-05-08] MEDS ORDERED: DEC4T PO (16:42)
[2022-05-08] MEDS ORDERED: dexamethasone sod phosphate 10mg/ml inj IM STA (16:54)
== END 2022-05-08 17:29 | disposition home or self-care (01) ==
LOC: ER 15:03
DX: S80.12XA Contusion of left lower leg, initial encounter (principal); S80.11XA Contusion of right lower leg, initial encounter; M79.604 Pain in right leg; M79.605 Pain in left leg; M32.9 Systemic lupus erythematosus, unspecified; G43.909 Migraine, unspecified, not intractable, without status migrainosus; F15.20 Other stimulant dependence, uncomplicated; F12.90 Cannabis use, unspecified, uncomplicated; Z86.16 Personal history of COVID-19; Z88.8 Allergy status to other drugs, medicaments and biological substances; Z90.49 Acquired absence of other specified parts of digestive tract; Z98.51 Tubal ligation status; Z56.0 Unemployment, unspecified; X58.XXXA Exposure to other specified factors, initial encounter; Y93.89 Activity, other specified; Y92.89 Other specified places as the place of occurrence of the external cause; Y99.8 Other external cause status
CPT/HCPCS: 93970; 96372; 99284; J1100

== ENCOUNTER 2022-07-03 20:40 | Emergency (ER) | payer MEDICAID ==
[~2022-07-03] VITALS: Ht 157.5 cm; Wt 68.2 kg
[2022-07-03 20:47] VITALS: BP 116/70
[2022-07-03 21:49] LABS: BASOPHILS # (AUTO) 0.1 X10'3 (0-0.2); BASOPHILS % (AUTO) 0.8 % (0-1); HEMATOCRIT 39.3 % (35.0-45.0); MEAN PLATELET VOLUME 7.7 FL (7.4-10.4); RED CELL DISTRIBUTION WIDTH 13.3 % (11.5-14.5)
[2022-07-03 21:50] LABS: EOSINOPHILS # (AUTO) 0.2 X10'3 (0-0.9); EOSINOPHILS % (AUTO) 1.9 % (0-6); HEMOGLOBIN 13.4 g/dl (12.0-16.0); LYMPHOCYTES # (AUTO) 3.2 X10'3 (1.1-4.8); LYMPHOCYTES % (AUTO) 28.6 % (21-51); MEAN CORPUSCULAR HEMOGLOBIN 30.4 PG (27.0-31.0); MEAN CORPUSCULAR VOLUME 89.3 FL (78-98); MONOCYTES # (AUTO) 1.1 X10'3 (0-0.9); MONOCYTES % (AUTO) 10.1 % (2-12); NEUTROPHILS # (AUTO) 6.5 X10'3 (1.8-7.7); NEUTROPHILS % (AUTO) 58.6 % (42-75); PLATELET COUNT 296 X10'3 (140-440)
[2022-07-03 22:05] LABS: ALANINE AMINOTRANSFERASE 35 U/L (12-78); ALBUMIN 3.7 G/DL (3.4-5.0); ALKALINE PHOSPHATASE 80 IU/L (46-116); ANION GAP 9 (8-16); ASPARTATE AMINO TRANSFERASE 18 U/L (10-37); BILIRUBIN,TOTAL 0.2 MG/DL (0.1-1.0); BLOOD UREA NITROGEN 7 MG/DL (7-18); BUN/CREATININE RATIO 10.1 (6.6-38.0); CALCIUM 9.3 MG/DL (8.5-10.1); CHLORIDE 103 MMOL/L (99-107); CREATININE 0.69 MG/DL (0.40-0.90); GLUCOSE 88 MG/DL (70-104); POTASSIUM 3.9 MMOL/L (3.5-5.1); SODIUM 139 MMOL/L (135-145); TOTAL CARBON DIOXIDE 27.1 MMOL/L (24-32); TOTAL PROTEIN 7.3 G/DL (6.4-8.2); eGFR > 90 ML/MIN
[2022-07-03 22:12] LABS: LIPASE 143 U/L (73-393)
[2022-07-03] MEDS ORDERED: normal saline 1000ML IV soln IVB ONE (22:20)
[2022-07-03] MEDS ORDERED: ondansetron/PF 4mg/2ml inj IV ONE (22:20)
[2022-07-03] MEDS ORDERED: ONDA4TAB12 PO (23:21)
[2022-07-03] MEDS ORDERED: ketorolac trometh. 30mg/ml inj. IV ONE (23:35)
== END 2022-07-03 23:53 | disposition home or self-care (01) ==
LOC: ER 20:41
DX: R11.2 Nausea with vomiting, unspecified (principal); R07.89 Other chest pain; G43.909 Migraine, unspecified, not intractable, without status migrainosus; F41.9 Anxiety disorder, unspecified; F32.A Depression, unspecified; F17.200 Nicotine dependence, unspecified, uncomplicated; F12.90 Cannabis use, unspecified, uncomplicated; F15.90 Other stimulant use, unspecified, uncomplicated; Z86.69 Personal history of other diseases of the nervous system and sense organs; Z87.442 Personal history of urinary calculi; Z87.440 Personal history of urinary (tract) infections; Z86.718 Personal history of other venous thrombosis and embolism; Z90.49 Acquired absence of other specified parts of digestive tract; Z98.51 Tubal ligation status; Z56.0 Unemployment, unspecified; Z88.8 Allergy status to other drugs, medicaments and biological substances; Z79.899 Other long term (current) drug therapy
CPT/HCPCS: 36415; 71045; 80053; 83690; 83880; 84484; 85025; 93005; 96374; 96375; 99285; J1885; J2405; J7030

== ENCOUNTER 2022-07-28 18:13 | Emergency (ER) | payer MEDICAID ==
[~2022-07-28] VITALS: Ht 157.5 cm; Wt 68.2 kg
[~2022-07-28 18:13] MED LIST changes: +ONDA4TAB12 PO
[2022-07-28 18:37] VITALS: BP 118/70
[2022-07-28 19:17] LABS: BASOPHILS # (AUTO) 0.1 X10'3 (0-0.2); BASOPHILS % (AUTO) 0.6 % (0-1); EOSINOPHILS # (AUTO) 0.2 X10'3 (0-0.9); EOSINOPHILS % (AUTO) 1.4 % (0-6); HEMATOCRIT 37.5 % (35.0-45.0); HEMOGLOBIN 12.6 g/dl (12.0-16.0); LYMPHOCYTES # (AUTO) 3.6 X10'3 (1.1-4.8); LYMPHOCYTES % (AUTO) 32.8 % (21-51); MEAN CORPUSCULAR HGB CONC 33.7 g/dL (33.0-36.5); MEAN CORPUSCULAR VOLUME 88.9 FL (78-98); MEAN PLATELET VOLUME 7.1 FL (7.4-10.4); MONOCYTES # (AUTO) 0.9 X10'3 (0-0.9); MONOCYTES % (AUTO) 7.7 % (2-12); NEUTROPHILS # (AUTO) 6.4 X10'3 (1.8-7.7); NEUTROPHILS % (AUTO) 57.5 % (42-75); PLATELET COUNT 354 X10'3 (140-440); RED BLOOD COUNT 4.22 X10'6 (4.20-5.60); RED CELL DISTRIBUTION WIDTH 13.2 % (11.5-14.5); WHITE BLOOD COUNT 11.1 X10'3 (4.5-11.0)
[2022-07-28 19:25] LABS: URINE HCG NEGATIVE (NEG)
[2022-07-28 19:26] LABS: CLARITY,URINE CLEAR (Clear); COLOR,URINE YELLOW (Yellow); GLUCOSE, URINE NEGATIVE (Neg); KETONES,URINE NEGATIVE (Neg); LEUKOCYTE ESTERASE ,URINE NEGATIVE (Neg); NITRITES, URINE NEGATIVE (Neg); OCCULT BLOOD,URINE NEGATIVE (Neg); PH,URINE 7.5 (4.8-8.0); PROTEIN,URINE NEGATIVE (Neg); UROBILINOGEN,URINE 0.2 E.U/dL (0.2-1.0)
[2022-07-28 19:28] LABS: UA COLLECTION TYPE VOIDED
[2022-07-28 19:34] LABS: ALANINE AMINOTRANSFERASE 29 U/L (12-78); ALBUMIN 3.7 G/DL (3.4-5.0); ALBUMIN/GLOBULIN RATIO 1.1 (1.1-1.5); ALKALINE PHOSPHATASE 87 IU/L (46-116); ANION GAP 5 (8-16); ASPARTATE AMINO TRANSFERASE 19 U/L (10-37); BILIRUBIN,TOTAL 0.2 MG/DL (0.1-1.0); BLOOD UREA NITROGEN 6 MG/DL (7-18); CALCIUM 8.6 MG/DL (8.5-10.1); CHLORIDE 104 MMOL/L (99-107); GLUCOSE 107 MG/DL (70-104); LIPASE 264 U/L (73-393); POTASSIUM 3.6 MMOL/L (3.5-5.1); SODIUM 138 MMOL/L (135-145); TOTAL CARBON DIOXIDE 28.8 MMOL/L (24-32); eGFR > 90 ML/MIN
== END 2022-07-28 23:46 | disposition left against medical advice (07) ==
LOC: ER 18:13
DX: R11.2 Nausea with vomiting, unspecified (principal); Z53.21 Procedure and treatment not carried out due to patient leaving prior to being seen by health care provider
CPT/HCPCS: 36415; 80053; 81003; 81025; 83690; 85025

== ENCOUNTER 2022-07-29 23:25 | Emergency (ER) | payer MEDICAID ==
[~2022-07-29] VITALS: Ht 157.5 cm; Wt 68.2 kg
[2022-07-29 23:29] VITALS: BP 114/68
--- NOTE | 2022-07-29 23:47 | NUR ---
Dr. Branham bedside assessing patient.
[2022-07-29] MEDS ORDERED: ondansetron 4mg rapidly disintigrating tab PO ONE (23:55)
== END 2022-07-30 00:18 | disposition home or self-care (01) ==
LOC: ER 23:26
DX: R11.2 Nausea with vomiting, unspecified (principal); G43.909 Migraine, unspecified, not intractable, without status migrainosus; F12.90 Cannabis use, unspecified, uncomplicated; F15.20 Other stimulant dependence, uncomplicated; Z88.5 Allergy status to narcotic agent; Z88.8 Allergy status to other drugs, medicaments and biological substances; Z90.49 Acquired absence of other specified parts of digestive tract; Z98.51 Tubal ligation status; Z56.0 Unemployment, unspecified
CPT/HCPCS: 99283